=== PATIENT | male | born 2000 | race Two or more races ===

== ENCOUNTER 2022-12-13 15:45 | Emergency (ER) | payer MEDICAID, OTHER ==
[~2022-12-13] VITALS: Ht 177.8 cm; Wt 81.0 kg
[2022-12-13 15:48] VITALS: BP 155/79
== END 2022-12-13 21:19 | disposition home or self-care (01) ==
LOC: ER 16:04
DX: S83.8X2A Sprain of other specified parts of left knee, initial encounter (principal); Y93.02 Activity, running; Y93.9 Activity, unspecified; Y92.9 Unspecified place or not applicable
CPT/HCPCS: 73562; 99283